=== PATIENT | male | born 1980 ===

== ENCOUNTER 2018-09-26 19:53 | Emergency (ER) | payer SELFPAY ==
[2018-09-26 20:08] VITALS: RESP 16; TEMP 97.3
--- NOTE | 2018-09-26 20:19 | C.PDOC ---
History Of Present Illness 38 yo male comes in for evaluation of Right ankle pain, swelling gradually developed since early today after sustained twisting injury at home. Pt sts, "slipped, twisted my ankle and fell down". Pt reports, gradually developed swelling over lateral malleolus of Right ankle, pain, that is localized and worse with weight bearing. Otherwise, pt denies head injury, LOC, neck pain, denies obvious deformity, weakness, sensory or vascular deficits to Right foot. AMbulate to ED. Time Seen by Provider: 09/26/18 20:02 Chief Complaint (Nursing): Lower Extremity Problem/Injury History Per: Patient Past Medical History Reviewed: Historical Data, Nursing Documentation, Vital Signs Vital Signs: Last Vital Signs Temp 97.3 F L 09/26/18 20:06 Pulse 90 09/26/18 20:06 Resp 16 09/26/18 20:06 BP 156/100 H 09/26/18 20:06 Pulse Ox 99 09/26/18 20:06 - Medical History PMH: No Chronic Diseases Family History: States: No Known Family Hx - Social History Hx Tobacco Use: No Hx Alcohol Use: No Hx Substance Use: No - Immunization History Hx Tetanus Toxoid Vaccination: No Hx Influenza Vaccination: No Hx Pneumococcal Vaccination: No Review Of Systems Except As Marked, All Systems Reviewed And Found Negative. Eyes: Negative for: Vision Change Gastrointestinal: Negative for: Nausea, Vomiting Genitourinary: Negative for: Incontinence Musculoskeletal: Positive for: Foot Pain (Right). Negative for: Neck Pain, Back Pain Skin: Negative for: Bruising Neurological: Negative for: Weakness, Numbness, Altered Mental Status, Headache, Dizziness Physical Exam - Physical Exam Appears: Well, Non-toxic, No Acute Distress Skin: Normal Color, Warm, No Ecchymosis Head: Atraumatic, Normacephalic Eye(s): bilateral: PERRL Extremity: Normal ROM (mild discomfort to FAROM over right ankle due to pain. No neurovascular deficits distally to injury.), Tenderness (lateral malleolus of Right ankle with mild edema.), Capillary Refill (less than 2sec to Right foot), No Deformity, Swelling (Right ankle) Pulses: Right Dorsalis Pedis: Normal Neurological/Psych: Oriented x3, Normal Speech, Normal Motor, Normal Sensation, Normal Reflexes ED Course And Treatment O2 Sat by Pulse Oximetry: 99 - Other Rad Right tib/fib X-Ray: Interpreted by Me, Viewed By Me Interpretation: (-) acute fx Right ankle/foot X-Ray: Interpreted by Me, Viewed By Me Interpretation: (-) acute fx or dislocation Progress Note: On re-eval, pt is afebrile, hemodynamicaly stable. Non-toxic. head: AT/NC. neck: Supple, (-) midline tenderness. Right ankle: mild edema, tendernes sover lateral malleolus, No palpable deformity. FAROM, no neurovascular deficits. Imagings review (-) acute fx or dislocation'. Carlitos wrap/air cats applied to Right ankle. Crutches provided. Pt has clinical findings c/w Right ankle sprain. Pt advised. ref. to f/u with Podiatry Clinic on Monday for re-eval. return if any new changes. Disposition Counseled Patient/Family Regarding: Studies Performed, Diagnosis, Need For Followup, Rx Given - Disposition Referrals: [facility] [Outside] Disposition: HOME/ ROUTINE Disposition Time: 20:45 Condition: STABLE Additional Instructions: RICE-rest, ice, compression, elevation take pain medication as need Follow up with Podiatry Clinic on Monday from 12 PM-3PM for re-evaluation. return to ED if any worsening or new changes. Prescriptions: traMADol [Ultram] 50 mg PO TID #7 tab Instructions: Ankle Sprain Forms: [facility] (E[place]ian), Work Excuse Print Language: ISRAELI - Clinical Impression Clinical Impression: Ankle sprain
[2018-09-26 21:15] VITALS: BP 145/76; PULSE 79
[2018-09-27 06:34] VITALS: O2SAT 99
--- NOTE | 2018-09-27 12:53 | RAD ---
Date of service: 09/26/2018 PROCEDURE: Radiographs of the right tibia and fibula. HISTORY: injury COMPARISON: None available TECHNIQUE: Frontal and lateral views obtained. FINDINGS: BONES: No fracture or destructive lesion. JOINT SPACES: Unremarkable. OTHER FINDINGS: None. IMPRESSION: Unremarkable radiographs of the right tibia and fibula.
--- NOTE | 2018-09-27 13:01 | RAD ---
Date of service: 09/26/2018 PROCEDURE: Right Ankle Radiographs. HISTORY: injury COMPARISON: None available. FINDINGS: BONES: Normal. No fracture. JOINTS: Normal. No osteoarthritis. Ankle mortise maintained. Talar dome intact SOFT TISSUES: Mild soft tissue swelling. OTHER FINDINGS: None. IMPRESSION: No evidence of acute fracture or dislocation. Mild soft tissue swelling.
--- NOTE | 2018-09-27 13:07 | RAD ---
Date of service: 09/26/2018 PROCEDURE: Right Foot Radiographs. HISTORY: injury COMPARISON: None. FINDINGS: BONES: Normal. No fracture. JOINTS: Normal. SOFT TISSUES: Normal. OTHER FINDINGS: None. IMPRESSION: No evidence of acute fracture or dislocation. Mild degenerative changes.
== END 2018-09-26 21:35 | disposition home or self-care (01) ==
LOC: C.ER 19:53
DX: S93.401A Sprain of unspecified ligament of right ankle, initial encounter (principal); W01.0XXA Fall on same level from slipping, tripping and stumbling without subsequent striking against object, initial encounter